=== PATIENT | female | born 1955 | race Caucasian/White ===

== ENCOUNTER 2018-08-23 08:59 | Inpatient (IN) | payer MEDICAID ==
[~2018-08-23] VITALS: Ht 167.6 cm; Wt 59.0 kg
[2018-08-23 09:05] VITALS: BP 155/50
--- NOTE | 2018-08-23 09:10 | NUR ---
63Y/F BIBA [facility] WITH C/O 8/10 RIGHT LEG PAIN/CELLULITIS X 1 MONTH. SWELLING/HOT TO TOUCH/REDENESS NOTED TO RIGHT KNEE TO RIGHT FOOT, + SWELLING, + DISCHARGE . SKIN TEAR NOTED TO RIGHT KNEE. PT STATES SHE CAME FROM A HOME SOMEWHERE ON [address]. [facility] STATES SHE WAS FOUND AT A [employer], HOMELESS OUT REACH GROUP CALL 911 FOR THE PT. HX--SZ,DM RX--METFORMIN 500MG, "INSULIN", DILANTIN
[2018-08-23] MEDS ORDERED: NACL 0.9% 1,500 ML IV SCH (09:27)
[2018-08-23] MEDS ORDERED: PIPERACILLIN/TAZOBACTAM 3.375 GM in DEXT 5% MINI-BAG PLUS 50 ML IV ONE (09:30)
--- NOTE | 2018-08-23 09:33 | NUR ---
Patient being evaluated by at bedside.
--- NOTE | 2018-08-23 09:40 | NUR ---
LAB AT BEDSIDE
--- NOTE | 2018-08-23 09:40 | NUR ---
X-RAY AT BEDSIDE
[2018-08-23] MEDS ORDERED: PIPERACILLIN/TAZOBACTAM 3.375 GM VIAL IV ONE (09:45)
[2018-08-23 10:09] LABS: BASOPHILS % (AUTO) 0.3 % (0.0-2.0); HEMATOCRIT 41.6 % (36-48); HEMOGLOBIN 13.6 g/dL (12.0-16.0); LYMPHOCYTES # (AUTO) 1.4 K/uL (2.5-16.5); MEAN CORPUSCULAR HEMOGLOBIN 29 pg (27-31); MEAN CORPUSCULAR HGB CONC 33 g/dL (33-37); MEAN CORPUSCULAR VOLUME 86.8 fL (80-94); MONOCYTES # (AUTO) 0.7 K/uL (0.8-1.0); MONOCYTES % (AUTO) 3.9 % (1.7-9.3); NEUTROPHILS # (AUTO) 14.8 K/uL (1.8-7.7); NEUTROPHILS % (AUTO) 87.8 % (42.2-75.2); PLATELET COUNT (AUTO) 354 K/uL (140-450); RED BLOOD CELL COUNT(AUTO) 4.79 MIL/uL (4.20-5.40); WHITE BLOOD COUNT (AUTO) 16.9 K/uL (4.8-10.8)
[2018-08-23 10:12] LABS: APPEARANCE,URINE CLEAR (CLEAR); BILIRUBIN,URINE NEGATIVE (NEGATIVE); BLOOD, URINE TRACE-L (NEGATIVE); COLOR,URINE YELLOW (YELLOW); LEUKOCYTE ESTERASE ,URINE NEGATIVE (NEGATIVE); NITRITE, URINE NEGATIVE (NEGATIVE); UGLUCOSE 3+ (NEGATIVE)
--- NOTE | 2018-08-23 10:19 | NUR ---
ULTRASOUND AT BEDSIDE
[2018-08-23 10:22] LABS: ALBUMIN 2.9 g/dL (3.4-5.0); ANION GAP 17.1 (8-16); CARBON DIOXIDE 25.7 mmol/L (21-32); CREATININE 0.8 mg/dL (0.6-1.3); POTASSIUM 3.8 mmol/L (3.5-5.1); TOTAL BILIRUBIN 0.7 mg/dL (0.0-1.0)
[2018-08-23 10:27] LABS: RBC,URINE 3-10 (FEW) /HPF (0-5); WBC,URINE 0-5 (RARE) /HPF (0-5); YEAST,URINE Few /HPF (None Seen)
[2018-08-23 10:28] LABS: PROTHROMBIN TIME 10.5 secs (10.8-13.4)
[2018-08-23] MEDS ORDERED: VANCOMYCIN 1,000 MG in DEXTROSE 5% 250 ML IV ONE (10:40)
[2018-08-23] MEDS ORDERED: VANCOMYCIN 1,000 MG VIAL ONE (11:06)
[2018-08-23] MEDS ORDERED: PHEN100C3 PO (12:11)
[2018-08-23] MEDS ORDERED: LANTUS SUBQ (12:11)
[2018-08-23] MEDS ORDERED: METF1000 PO (12:11)
--- NOTE | 2018-08-23 12:13 | NUR ---
Patient will be admitted to care of dr. royal. Admited to tele floor. Will go to room 108-a. Belongings list completed. Report to jamil forman.
[2018-08-23] MEDS ORDERED: VANCOMYCIN PER PHARMACY MC PRN (12:15)
[2018-08-23] MEDS ORDERED: DEXTROSE 50% 50 ML SYR IVP PRN (12:15)
[2018-08-23 12:20] VITALS: BP 122/56
--- NOTE | 2018-08-23 12:20 | NUR ---
RECEIVED BEDSIDE REPORT FROM ER NURSE. PT STABLE, AWAKE AND ALERT. NO SEIZURE ACTIVITY NOTED. RAILINGS PADDED. IV SITE WNL. NO SIGNS OF DISTRESS NOTED. CALL MUELLER WITHIN REACH. BED IN LOW POSITION. SAFETY MEASURES IN PLACE. PLAN OF CARE REVIEWED.
[2018-08-23] MEDS: PIPER/TAZO 3.375GM/D5W PREMIX 50 ML IV SCH ×2 (12:31→20:43)
[2018-08-23] MEDS: NACL 0.9% 1,000 ML IV SCH ×2 (12:32→19:47)
[2018-08-23] MEDS: PHENYTOIN 100 MG CAPER PO SCH ×2 (13:07→17:12)
[2018-08-23 13:08] LABS: BARBITURATE, URINE NEG. ng/ml (NEG <=200); BENZODIAZEPINE, URINE NEG. ng/mL (NEG <=200); CANNABINOID, URINE NEG. ng/mL (NEG <=50); COCAINE, URINE NEG. ng/mL (NEG <=300); OPIATE, URINE NEG. ng/mL (NEG <=2000); PHENCYCLIDINE SCREEN,URINE NEG. ng/mL (NEG <=25)
[2018-08-23] MEDS: NEOMYCIN/POLYMYXIN/BACITRACIN OIN 15 GM TUBE TP SCH (13:14)
--- NOTE | 2018-08-23 13:17 | NUR ---
ADMINISTERED SCHEDULED MEDICATIONS. PT TOLERATED WELL. NO OTHER NEEDS AT THIS TIME.
[2018-08-23 13:40] LABS: MAGNESIUM 1.2 mg/dL (1.8-2.4); PHOSPHORUS 3.7 mg/dL (2.5-4.9); THYROID STIMULATING HORMONE 0.75 uIU/mL (0.34-3.74)
--- NOTE | 2018-08-23 15:08 | NUR ---
PT ASSSITED TO BEDSIDE COMMODE, LARGE BM, ASSISTED WITH HYGENE, PT RETURNED TO BED
--- NOTE | 2018-08-23 16:08 | NUR ---
RIGHT KNEE WOUND AND RIGHT TOE WOUND CLEANED WITH NS, NEOSPORINE ONINTMENT APPLIED TO KNEE, DRESSING APPLIED TO BOTH WOUNDS
[2018-08-23] MEDS: INSULIN LISPRO SLIDING SCALE 100 UNITS/ML VIAL SUBQ PRN ×2 (17:05→21:16)
[2018-08-23] MEDS: BLOOD GLUCOSE MONITORING 1 DEV DEV FS SCH ×2 (17:12→20:47)
[2018-08-23] MEDS: metFORMIN 500 MG TAB PO SCH (17:12)
[2018-08-23 17:47] LABS: CHOL/HDL RATIO 3.5 (1-4.5)
--- NOTE | 2018-08-23 18:40 | NUR ---
UPHOLSTERY BUNDLER AT THE BEDSIDE. PT CONSENTED FOR SURGERY TOMORROW.
--- NOTE | 2018-08-23 19:20 | NUR ---
REPORT GIVEN TO NIGHT HSHIFT NURSE CELE, PT AWAKE ALERT, IN NAD.
[2018-08-23 20:00] VITALS: BP 110/47
[2018-08-23] MEDS: INSULIN LANTUS 100 UNITS/ML 10 ML VIAL SUBQ SCH ×2 (20:48→21:00)
--- NOTE | 2018-08-23 20:49 | NUR ---
TALKED TO DR. NAJERA REGARDING PT FOR SURGERY TOMORROW. HE SAID HOLD THE LANTUS FOR TONIGHT. Addendum: 08/23/18 at 2136 by Karen Coles RN DR. NAJERA SAID TO HOLD THE LANTUS .HAVE HER EAT THE SANDWICHIRST AND THEN RECHECKED THE BLOOD SUGAR AFTER EATING AND LET HIM KNOW.
--- NOTE | 2018-08-23 20:50 | NUR ---
DR. NAJERA SAID TO HOLD HEPARIN SUB Q TONIGHT FOR PT FOR SURGERY TOMORROW.
--- NOTE | 2018-08-23 22:44 | NUR ---
BLOOD SUGAR WAS RECHECKED AFTER EATING SANDWICH RESULT 207. DR. NAJERA RESIDENT MD SAID JUST GIVE 10 UNITS LANTUS FOR NOW AND RECHECK AGAIN BLOOD SUGAR AT NV.
[2018-08-23] MEDS ORDERED: INSULIN LANTUS 100 UNITS/ML 10 ML VIAL SUBQ ONE (22:50)
[2018-08-23] MEDS ORDERED: BENZONATATE 100 MG CAPLF PO PRN (23:45)
[2018-08-23 23:50] VITALS: BP 102/54
[2018-08-24] MEDS ORDERED: guaiFENesin DM 200/20 MG-10 ML 10 ML UDC PO PRN (00:05)
--- NOTE | 2018-08-24 00:20 | NUR ---
KEPT PT NPO AFTER MN FOR SURGERY LATER TODAY. PT IS AWARE.
--- NOTE | 2018-08-24 01:04 | NUR ---
BLOOD SUGAR WAS RECHECKED RESULT 225. DR. NAJERA RESIDENT MD MADE AWARE. NO NEW ORDER. WILL CONTINUE TO MONITOR.
--- NOTE | 2018-08-24 01:05 | NUR ---
MADE AWARE OF THE HEART RATE STILL ON THE 121 -122/MIN. HE SAID TO INCREASE THE MORPHINE DRIP TO 1OO MG /HR. Addendum: 08/24/18 at 0112 by Karen Coles RN CANCEL ABOVE NOTES. WRONG PT.
--- NOTE | 2018-08-24 02:30 | NUR ---
MADE ROUNDS. PT ASLEEP. NO S/S OF ANY DISCOMFORT NOTED. WILL CONTINUE TO MONITOR.
[2018-08-24 03:43] VITALS: BP 129/60
[2018-08-24] MEDS: PIPER/TAZO 3.375GM/D5W PREMIX 50 ML IV SCH ×3 (04:27→20:07)
[2018-08-24 05:42] LABS: BASOPHILS % (AUTO) 0.4 % (0.0-2.0); EOSINOPHILS # (AUTO) 0.1 K/uL (0-0.4); EOSINOPHILS % (AUTO) 0.8 % (0.0-4.0); HEMATOCRIT 33.9 % (36-48); HEMOGLOBIN 11.2 g/dL (12.0-16.0); LYMPHOCYTES # (AUTO) 3.3 K/uL (2.5-16.5); LYMPHOCYTES % (AUTO) 26.7 % (20.5-51.1); MEAN CORPUSCULAR HEMOGLOBIN 29 pg (27-31); MEAN CORPUSCULAR HGB CONC 33 g/dL (33-37); MEAN CORPUSCULAR VOLUME 86.3 fL (80-94); MONOCYTES # (AUTO) 1.2 K/uL (0.8-1.0); MONOCYTES % (AUTO) 9.8 % (1.7-9.3); NEUTROPHILS # (AUTO) 7.6 K/uL (1.8-7.7); NEUTROPHILS % (AUTO) 62.3 % (42.2-75.2); PLATELET COUNT (AUTO) 283 K/uL (140-450); RED BLOOD CELL COUNT(AUTO) 3.94 MIL/uL (4.20-5.40); RED CELL DISTRIBUTION WIDTH 12.7 % (11.6-13.7); WHITE BLOOD COUNT (AUTO) 12.2 K/uL (4.8-10.8)
[2018-08-24] MEDS: ONDANSETRON 4 MG/2 ML VIAL IM/IVP PRN (05:52)
[2018-08-24] MEDS: VANCOMYCIN 500 MG in NACL 0.9% 100 ML IV SCH ×2 (05:56→17:42)
[2018-08-24] MEDS: INSULIN LISPRO SLIDING SCALE 100 UNITS/ML VIAL SUBQ PRN ×3 (06:03→20:21)
[2018-08-24 06:07] LABS: ANION GAP 9.6 (8-16); CARBON DIOXIDE 28.7 mmol/L (21-32); CREATININE 0.6 mg/dL (0.6-1.3); POTASSIUM 3.3 mmol/L (3.5-5.1)
[2018-08-24 06:10] LABS: MAGNESIUM 1.4 mg/dL (1.8-2.4); PHOSPHORUS 2.6 mg/dL (2.5-4.9)
[2018-08-24] MEDS: BLOOD GLUCOSE MONITORING 1 DEV DEV FS SCH ×4 (06:35→20:12)
--- NOTE | 2018-08-24 06:37 | NUR ---
BLOOD SUGAR THIS AM 180. DR. NAJERA,RESIDENT MD MADE AWARE. HE SAID TO GIVE INSULIN COVERAGE HUMALOG 2 UNITS AND HE WILL CHANGE IVF TO D51/2NS.
[2018-08-24] MEDS ORDERED: DEXT 5% / NACL 0.45% 1,000 ML IV SCH (07:00)
--- NOTE | 2018-08-24 07:35 | NUR ---
ENDORSED PT IN STABLE CONDITION TO AM NURSE.
--- NOTE | 2018-08-24 07:36 | NUR ---
RECEIVED REPORT FROM THE CHIEF DIVERSITY OFFICER NURSE AT BEDSIDE FOR CONTINUITY OF CARE. PT IS AWAKE AND ORIENTED. INTRODUCED MYSELF AND UPDATED THE BOARD. REMINDED PT OF THE I&D SHE IS TO HAVE TODAY. PT IS AWARE. PT IS ON TELE, NOTED THE BEDSIDE COMMODE. PT HAS DRESSING ON R FOOT. DRY AND INTACT. IV ON L FA 22G, D5 1/2NS AT 80ML/HR. PT'S K AND MAG LOW TODAY. WILL NOTIFY MD FOR REPLACEMENT. V/S WITHIN NORMAL RANGE. WILL CONTINUE TO MONITOR PT.
--- NOTE | 2018-08-24 07:44 | NUR ---
PATIENT HAS BEEN SCREENED AND CATEGORIZED HIGH NUTRITION RISK. PATIENT WILL BE SEEN WITHIN 1-2 DAYS OF ADMISSION. 08/24/[address]
[2018-08-24 08:00] VITALS: BP 142/72
[2018-08-24 08:25] LABS: T4 (THYROXINE) 6.4 ug/dL (4.5-12.0)
[2018-08-24] MEDS: LISINOPRIL 5 MG TAB PO SCH (08:27)
[2018-08-24] MEDS: metFORMIN 500 MG TAB PO SCH ×2 (08:27→17:42)
[2018-08-24] MEDS: PHENYTOIN 100 MG CAPER PO SCH ×3 (08:27→17:42)
[2018-08-24] MEDS ORDERED: MAG SULF 2000 MG/WATER PREMIX 100 ML IV SCH (09:00)
[2018-08-24] MEDS ORDERED: COMMUNICATION ORDER MC ONE (10:55)
[2018-08-24] MEDS ORDERED: POTASSIUM CHLORIDE IV SCH (11:30)
[2018-08-24] MEDS ORDERED: MAGNESIUM SULFATE IV SCH (11:30)
[2018-08-24] MEDS ORDERED: LIDOCAINE IV SCH (11:30)
[2018-08-24] MEDS ORDERED: [UNRECOGNIZED DRUG - OTHER] IV SCH (11:30)
[2018-08-24 12:00] VITALS: BP 111/46
--- NOTE | 2018-08-24 12:05 | NUR ---
WOUND CARE EVALUATION. NOT DONE. PT TO OR.
[2018-08-24] MEDS ORDERED: KCL 20 MEQ/WATER INJ PREMIX 200 ML IV SCH (13:00)
--- NOTE | 2018-08-24 13:25 | NUR ---
08/24/18 RD INITIAL ASSESSMENT COMPLETED PLEASE REFER TO NUTRITION ASSESSMENT UNDER CARE ACTIVITY FOR ESTIMATED NUTRITIONAL NEEDS. 1. CONTINUE NPO DIET UNTIL MEDICALLY APPROPRIATE TO BEGIN NUTRITION 2. WHEN/IF PATIENT MEDICALLY STABLE TO BEGIN NUTRITION, RECOMMEND ADVANCE DIET TO 2 GM NA [address] TO FOLLOW UP ON ADEQUATE PO INTAKE AND VITAMINS AND MINERALS 4. RD PROVIDED DM AND HTN NUTRITION THERAPY EDUCATION 5. RD TO FOLLOW-UP 3-5 DAYS, MODERATE RISK JESSICA DEL CASTILLO RD
[2018-08-24] MEDS: BUPIVACAINE-MPF 0.5% 30 ML VIAL INJ ONE ×2 (13:28→14:24)
[2018-08-24] MEDS ORDERED: LIDOCAINE 1% 50 ML ONE (13:28)
[2018-08-24] MEDS ORDERED: PROPOFOL 200 MG/20 ML VIAL IV ONE (13:55)
[2018-08-24] MEDS ORDERED: SEVOFLURANE 250 ML BTL INH ONE (13:55)
--- NOTE | 2018-08-24 13:57 | NUR ---
LATE ENTRY. PT WENT TO OR FOR HER PROCEDURE. ALL 1300 MEDS WILL BE HELD UNTIL SHE RETURNS. WILL AWAIT HER RETURN.
[2018-08-24] MEDS ORDERED: MIDAZOLAM 2 MG/2 ML VIAL ONE (14:04)
[2018-08-24] MEDS ORDERED: fentaNYL 0.05 MG/ML VIAL ONE (14:05)
[2018-08-24] MEDS ORDERED: ONDANSETRON 4 MG/2 ML VIAL IVP PRN (14:30)
[2018-08-24] MEDS ORDERED: BLOOD GLUCOSE MONITORING 1 DEV DEV FS SCH (14:40)
--- NOTE | 2018-08-24 15:32 | NUR ---
PT RETURNED TO THE UNIT WITH 2 O/R NURSES. PT IS ALERT AND ORIENTED. V/S WITHIN NORMAL LIMITS. NS FLOWING AT THIS TIME.
--- NOTE | 2018-08-24 15:54 | NUR ---
CALLED PHARMACIST AND ASKED ABOUT GIVING DILANTIN AND ZOSYN 1300 DOSE. PER PHARMACIST OK TO GIVE. WILL GIVE INSTRUCTED.
[2018-08-24 16:00] VITALS: BP 140/55
[2018-08-24] MEDS: NACL 0.9% 1,000 ML IV SCH ×2 (16:01→23:17)
[2018-08-24] MEDS: NEOMYCIN/POLYMYXIN/BACITRACIN OIN 15 GM TUBE TP SCH (16:01)
--- NOTE | 2018-08-24 19:30 | NUR ---
REPORT RECEIVED FROM AM NURSE AT BEDSIDE. PT IN STABLE CONDITION. AAOX4. INTRODUCED SELF TO PT. BOARD UPDATED. NO COMPLAINTS OF PAIN. NO SOB. AFEBRILE. IV SITE L FA 22G RUNNING NS@120ML/HR PATENT AND INTACT. SKIN WARM, DRY, AND NOT INTACT DUE TO CELLULITIS OF THE R LEG. SZ PRECAUTIONS IN PLACE. BED LOCKED IN LOW POSITION. CALL MUELLER WITHIN REACH. SAFETY PRECAUTIONS IN PLACE.
[2018-08-24 20:00] VITALS: BP 125/46
--- NOTE | 2018-08-24 20:07 | NUR ---
ALFA HUNG AND RUNNING. HEPARIN GIVEN SUBQ. BS 192. 2 UNITS OF HUMALOG GIVEN. LANTUS 20 UNITS GIVEN SUBQ. PT TOLERATED WELL.
[2018-08-24] MEDS: INSULIN LANTUS 100 UNITS/ML 10 ML VIAL SUBQ SCH (20:22)
--- NOTE | 2018-08-24 22:10 | NUR ---
PT AWAKE AND WATCHING TV. NO S/S OF DISTRESS NOTED.
[2018-08-25] VITALS: BP 125/46
--- NOTE | 2018-08-25 00:30 | NUR ---
PT SLEEPING COMFORTABLY. NO S/S OF DISTRESS NOTED. WILL CONTINUE TO MONITOR.
[2018-08-25] MEDS: ONDANSETRON 4 MG/2 ML VIAL IM/IVP PRN ×2 (01:35→12:30)
--- NOTE | 2018-08-25 01:35 | NUR ---
ZOFRAN GIVEN FOR NAUSEA. PT TOLERATED WELL.
[2018-08-25] MEDS: KETOROLAC 30 MG/ML VIAL IVP PRN (01:42)
--- NOTE | 2018-08-25 01:42 | NUR ---
TORADOL GIVEN FOR 10/10 PAIN. PT TOLERATED WELL.
[2018-08-25] MEDS: PIPER/TAZO 3.375GM/D5W PREMIX 50 ML IV SCH ×3 (04:06→21:33)
--- NOTE | 2018-08-25 04:06 | NUR ---
ALFA HUNG AND RUNNING. PT TOLERATING WELL.
[2018-08-25] MEDS: VANCOMYCIN 500 MG in NACL 0.9% 100 ML IV SCH ×2 (05:09→18:59)
--- NOTE | 2018-08-25 05:09 | NUR ---
COSTA BRIGHT AND RUNNING. PT TOLERATING WELL.
[2018-08-25] MEDS: BLOOD GLUCOSE MONITORING 1 DEV DEV FS SCH ×4 (06:06→21:27)
--- NOTE | 2018-08-25 06:06 | NUR ---
BS 84. NO INSULIN COVERAGE NEEDED.
[2018-08-25] MEDS: NACL 0.9% 1,000 ML IV SCH ×3 (06:51→23:48)
--- NOTE | 2018-08-25 07:34 | NUR ---
REPORT GIVEN TO AM NURSE AT BEDSIDE. PT IN STABLE CONDITION.
--- NOTE | 2018-08-25 07:35 | NUR ---
RECEIVED PT AAOX4. NO SOB NOTED. NO C/O PAIN AT THIS TIME. IV TO LT FOREARM PATENT AND INTACT, CHEST CLEAR, ABDOMEN SOFT, BOWEL SOUNDS PRESENT. RT FOOT DRESSING DRY AND INTACT, RLE ELEVATED WITH PILLOW. INSTRUCTED PT TO CALL FOR ASSISTANCE, CALL LIGHT WITHIN REACH, PT VERBALIZED UNDERSTANDING.
[2018-08-25 08:00] VITALS: BP 133/64
[2018-08-25] MEDS: metFORMIN 500 MG TAB PO SCH ×2 (08:00→18:04)
[2018-08-25 08:33] LABS: BASOPHILS % (AUTO) 0.4 % (0.0-2.0); EOSINOPHILS # (AUTO) 0.1 K/uL (0-0.4); EOSINOPHILS % (AUTO) 0.9 % (0.0-4.0); HEMATOCRIT 34.4 % (36-48); HEMOGLOBIN 11.4 g/dL (12.0-16.0); LYMPHOCYTES # (AUTO) 4.7 K/uL (2.5-16.5); LYMPHOCYTES % (AUTO) 46.8 % (20.5-51.1); MEAN CORPUSCULAR HEMOGLOBIN 29 pg (27-31); MEAN CORPUSCULAR HGB CONC 33 g/dL (33-37); MEAN CORPUSCULAR VOLUME 87.5 fL (80-94); MONOCYTES # (AUTO) 0.8 K/uL (0.8-1.0); MONOCYTES % (AUTO) 7.7 % (1.7-9.3); NEUTROPHILS # (AUTO) 4.5 K/uL (1.8-7.7); NEUTROPHILS % (AUTO) 44.2 % (42.2-75.2); PLATELET COUNT (AUTO) 304 K/uL (140-450); RED BLOOD CELL COUNT(AUTO) 3.93 MIL/uL (4.20-5.40); RED CELL DISTRIBUTION WIDTH 12.8 % (11.6-13.7); WHITE BLOOD COUNT (AUTO) 10.1 K/uL (4.8-10.8)
[2018-08-25 08:54] LABS: ANION GAP 8.4 (8-16); CARBON DIOXIDE 29.2 mmol/L (21-32); CREATININE 0.6 mg/dL (0.6-1.3); POTASSIUM 3.6 mmol/L (3.5-5.1)
[2018-08-25 08:57] LABS: MAGNESIUM 1.9 mg/dL (1.8-2.4); PHOSPHORUS 3.1 mg/dL (2.5-4.9)
[2018-08-25] MEDS: PHENYTOIN 100 MG CAPER PO SCH ×3 (09:42→18:03)
[2018-08-25] MEDS: LISINOPRIL 5 MG TAB PO SCH (09:42)
[2018-08-25] MEDS: HYDROcodone/APAP 7.5/325 MG 1 TAB PO PRN ×2 (09:42→20:08)
--- NOTE | 2018-08-25 11:00 | NUR ---
WOUND DRESSING DONE BY DR. ULRICH (BUILDING PERFORMANCE SPECIALIST) AT THE BEDSIDE. PHOTOS TAKEN AND DOCUMENTED.
[2018-08-25] MEDS: INSULIN LISPRO SLIDING SCALE 100 UNITS/ML VIAL SUBQ PRN (12:24)
[2018-08-25] MEDS: NEOMYCIN/POLYMYXIN/BACITRACIN OIN 15 GM TUBE TP SCH (12:30)
[2018-08-25 17:00] VITALS: BP 123/54
--- NOTE | 2018-08-25 18:45 | NUR ---
PT'S IV LEAKING. RESTARTED A NEW LINE ON RT HAND WITH GAUGE 22.
--- NOTE | 2018-08-25 19:10 | NUR ---
PT AWAKE, WATCHING TV. NO SOB NOTED. NO COMPLAINTS MADE. WILL ENDORSE TO NEXT SHIFT NURSE FOR CONTINUITY OF CARE.
--- NOTE | 2018-08-25 19:20 | NUR ---
RECEIVED PT FROM AM SHIFT NURSE. AAOX4. NO SOB NOTED.COMPLAINED OF 7/10 ON R FOOT, WILL MEDICATE. IV TO L FOREARM PATENT AND INTACT. RT FOOT DRESSING DRY AND INTACT, RLE ELEVATED WITH PILLOW. PT PLACED IN LOW BED, CALL LIGHT WITHIN REACH, PT VERBALIZED UNDERSTANDING.
[2018-08-25] MEDS ORDERED: INFLUENZA VIRUS VACCINE QUAD 0.5 ML SYR IMVAC PRN (20:55)
--- NOTE | 2018-08-25 21:00 | NUR ---
MEDICATED, AND BLOOD SUGAR LEVEL TAKEN WITH NORMAL RESULT.
[2018-08-25] MEDS: INSULIN LANTUS 100 UNITS/ML 10 ML VIAL SUBQ SCH (21:31)
--- NOTE | 2018-08-25 22:00 | NUR ---
PT SLEEPY COMFORTABLE IN BED WILL CONTINUE TO MONITOR.
[2018-08-26] VITALS: BP 135/69
[2018-08-26] MEDS: KETOROLAC 30 MG/ML VIAL IVP PRN (04:54)
[2018-08-26] MEDS: PIPER/TAZO 3.375GM/D5W PREMIX 50 ML IV SCH ×2 (05:18→13:11)
--- NOTE | 2018-08-26 05:55 | NUR ---
PT C.O OF PAIN AGAIN 04/16 R FOOT,WILL MEDICATE.
[2018-08-26] MEDS: VANCOMYCIN 500 MG in NACL 0.9% 100 ML IV SCH (06:56)
[2018-08-26] MEDS: BLOOD GLUCOSE MONITORING 1 DEV DEV FS SCH ×3 (06:57→16:30)
--- NOTE | 2018-08-26 07:35 | NUR ---
ENDORSED TO AM SHIFT NURSE WITH STABLE VITAL SIGNS. TORADOL MEDS LAST GIVEN AT 0555 FOR PAIN ON R FOOT
[2018-08-26 07:36] LABS: BASOPHILS % (AUTO) 0.5 % (0.0-2.0); EOSINOPHILS # (AUTO) 0.1 K/uL (0-0.4); HEMATOCRIT 34.1 % (36-48); HEMOGLOBIN 11.4 g/dL (12.0-16.0); LYMPHOCYTES # (AUTO) 2.9 K/uL (2.5-16.5); LYMPHOCYTES % (AUTO) 37.4 % (20.5-51.1); MEAN CORPUSCULAR HEMOGLOBIN 29 pg (27-31); MEAN CORPUSCULAR HGB CONC 33 g/dL (33-37); MEAN CORPUSCULAR VOLUME 87.2 fL (80-94); MONOCYTES # (AUTO) 0.5 K/uL (0.8-1.0); MONOCYTES % (AUTO) 6.7 % (1.7-9.3); NEUTROPHILS # (AUTO) 4.3 K/uL (1.8-7.7); NEUTROPHILS % (AUTO) 54.4 % (42.2-75.2); PLATELET COUNT (AUTO) 302 K/uL (140-450); RED BLOOD CELL COUNT(AUTO) 3.91 MIL/uL (4.20-5.40); RED CELL DISTRIBUTION WIDTH 12.9 % (11.6-13.7); WHITE BLOOD COUNT (AUTO) 7.8 K/uL (4.8-10.8)
--- NOTE | 2018-08-26 07:36 | NUR ---
RECEIVED REPORT FROM ELECTION JUDGE NURSE. PATIENT SITTING IN BED COMFORTABLY. NO DISTRESS NOTED. DENIES ANY PAIN AT THIS TIME. RESPIRATIONS EVEN, UNLABORED, ON ROOM AIR. AAOX4, CALM, COOPERATIVE, SKIN COLOR APPROPRIATE TO ETHNICITY. 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 ABDOMEN SOFT, NON-DISTENDED. IV SITE INTACT, PATENT, AND INFUSING IVF PER MD ORDERS. REVIEWED PLAN OF CARE WITH PATIENT. PATIENT VERBALIZED UNDERSTANDING. SAFETY MEASURES IN PLACE, CALL LIGHT WITHIN REACH. WILL CONTINUE TO MONITOR.
[2018-08-26 07:52] LABS: ANION GAP 10.1 (8-16); CARBON DIOXIDE 27.6 mmol/L (21-32); CREATININE 0.5 mg/dL (0.6-1.3); POTASSIUM 3.7 mmol/L (3.5-5.1)
[2018-08-26 07:56] LABS: MAGNESIUM 1.4 mg/dL (1.8-2.4); PHOSPHORUS 3.3 mg/dL (2.5-4.9)
[2018-08-26 08:00] VITALS: BP 132/53
[2018-08-26] MEDS: NACL 0.9% 1,000 ML IV SCH ×2 (08:08→16:28)
[2018-08-26 08:29] LABS: PHENYTOIN (DILANTIN) 6.5 ug/ml (10.0-20.0)
[2018-08-26] MEDS: metFORMIN 500 MG TAB PO SCH ×2 (09:04→18:02)
[2018-08-26] MEDS: PHENYTOIN 100 MG CAPER PO SCH ×3 (09:05→18:02)
[2018-08-26] MEDS: LISINOPRIL 5 MG TAB PO SCH (09:05)
--- NOTE | 2018-08-26 09:11 | NUR ---
PATIENT SITTING IN BED WATCHING TV. NO DISTRESS NOTED. DENIES ANY PAIN. SCHEDULED MEDICATIONS DUE GIVEN. WILL CONTINUE TO MONITOR.
[2018-08-26] MEDS ORDERED: LISI-424 PO (10:28)
[2018-08-26] MEDS ORDERED: GLUC-805 FS (10:28)
[2018-08-26] MEDS ORDERED: LANTUS SUBQ (10:28)
[2018-08-26] MEDS ORDERED: HUMSLIDE SUBQ (10:28)
[2018-08-26] MEDS ORDERED: BACI1OIN TP (10:28)
[2018-08-26] MEDS ORDERED: ACET-9529 PO (10:28)
[2018-08-26] MEDS ORDERED: SULF-59 PO (10:30)
[2018-08-26] MEDS ORDERED: LACT-2 (10:32)
--- NOTE | 2018-08-26 11:30 | NUR ---
PATIENT LYING DOWN IN BED WATCHING TV. NO DISTRESS NOTED. DENIES ANY PAIN. WILL CONTINUE TO MONITOR.
[2018-08-26] MEDS ORDERED: LISI5TAB18 PO (11:42)
[2018-08-26] MEDS ORDERED: VANCOMYCIN 750 MG in NACL 0.9% 250 ML IV SCH (13:00)
[2018-08-26] MEDS: INSULIN LISPRO SLIDING SCALE 100 UNITS/ML VIAL SUBQ PRN (13:10)
[2018-08-26] MEDS: NEOMYCIN/POLYMYXIN/BACITRACIN OIN 15 GM TUBE TP SCH (13:11)
--- NOTE | 2018-08-26 13:11 | NUR ---
SCHEDULED MEDICATIONS DUE GIVEN. WILL CONTINUE TO MONITOR.
--- NOTE | 2018-08-26 13:26 | NUR ---
PATIENT SITTING IN BED. EDUCATED PATIENT ON HOW TO USE CRUTCHES PROPERLY WITH RETURN DEMONSTRATION PERFORMED BY PATIENT SUCCESSFULLY. WALKED DOWN THE HALLWAY A LITTLE BIT USING WALKER. PATIENT VERBALIZES COMFORTABLE WITH WALKER AT THIS TIME. SCHEDULED MEDICATIONS DUE GIVEN. WILL CONTINUE TO MONITOR.
--- NOTE | 2018-08-26 15:05 | NUR ---
PATIENT LYING DOWN IN BED WATCHING TV. NO DISTRESS NOTED. CONDITION UNCHANGED. SCHEDULED MEDICATIONS DUE GIVEN. WILL CONTINUE TO MONITOR.
[2018-08-26] MEDS: HYDROcodone/APAP 7.5/325 MG 1 TAB PO PRN (15:33)
--- NOTE | 2018-08-26 15:34 | NUR ---
FLU VACCINE GIVEN TO RIGHT DELTOID, PT KARISHMA WELL, NORCO GIVEN FOR C/O RIGHT FOOT PAIN 02/13, WILL REPORT TO PRIMARY NURSE.
[2018-08-26 16:00] VITALS: BP 147/64
[2018-08-26] MEDS ORDERED: MAGNESIUM OXIDE 400 MG TAB PO SCH (18:00)
[2018-08-26] MEDS ORDERED: MAGNESIUM OXIDE 400 MG TAB ONE (18:02)
--- NOTE | 2018-08-26 18:04 | NUR ---
PATIENT SITTING IN BED WATCHING TV. SCHEDULED MEDICATIONS DUE GIVEN. 800 MG MAG OXIDE GIVEN PER MD ORDERS. WILL CONTINUE TO MONITOR.
[2018-08-26] MEDS: ONDANSETRON 4 MG/2 ML VIAL IM/IVP PRN (19:16)
--- NOTE | 2018-08-26 19:21 | NUR ---
PATIENT'S FAMILY MEMBERS ARRIVED TO TAKE PATIENT HOME. DISCHARGE INSTRUCTIONS GIVEN TO PATIENT/DAUGHTER AT BEDSIDE IN PREFERRED LANGUAGE OF URDU. FOLLOW-UP INSTRUCTIONS PROVIDED TO PATIENT/FAMILY, WOUND CARE MANAGEMENT, NEW/CHANGED MEDICATION REGIMEN, FOLLOW-UP VISIT WITH PROP AND SCENERY MAKER AND PCP. ANSWERED ALL OF PATIENT/FAMILY'S QUESTIONS REGARDING DISCHARGE. PATIENT TO GET DRESSED AT THIS TIME. IV SITE REMOVED WITH MINIMAL BLOOD AND LUMEN COMPLETELY INTACT.
--- NOTE | 2018-08-26 19:22 | NUR ---
RECEIVED REPORT FROM DAY SHIFT NURSE AT PT BEDSIDE. PT IN STABLE CONDITION. PT DAUGHTER AT BEDSIDE. PT AWAITING TO BE DISCHARGED.
--- NOTE | 2018-08-26 19:22 | NUR ---
GAVE REPORT TO BUILD MASTER RN FOR CONTINUITY OF CARE AND TO FINISH DISCHARGE. PATIENT IN STABLE CONDITION.
--- NOTE | 2018-08-26 19:59 | NUR ---
PT DISCHARGED AT THIS TIME. IV AND ID BAND REMOVED. ALL PT TEACHING REGARDING BS MONITORING AND WOUND CARE GIVEN, ACKNOWLEDGED AND PT AND DAUGHTER VERBALIZED UNDERSTANDING. ALL PAPERWORK, WOUND CARE SUPPLIES, CRUTCHES AND PERSONAL BELONGINGS WITH PT. PT TAKEN TO CAR VIA WHEELCHAIR AND LEFT WITH DAUGHTER. PT IN STABLE CONDITION. NO SIGNS OR SYMPTOMS OF DISTRESS.
--- NOTE | 2018-08-27 15:05 | NUR ---
I WAS REQUESTED BY CM DIRECTOR MARCELO TO MAKE AN OUTPATIENT FOLLOW UP. ATTEMPTED TO CALL PATIENT TO MAKE AN OUTPATIENT APPOINTMENT BUT PATIENT HAS NO PHONE NUMBER LISTED AND NO HOME ADDRESS LISTED. CM DIRECTOR MARCELO AWARE.
== END 2018-08-26 19:59 | disposition home or self-care (01) | DRG 710 ==
LOC: MED 08:59 → MTU 11:23
PROVIDERS: ADMIT General Practice; ATTEND General Practice
PROC: 3E0234Z Introduction of Serum, Toxoid and Vaccine into Muscle, Percutaneous Approach (ICD-10-PCS; 2018-08-23)
PROC: 0Y6M0ZC Detachment at Right Foot, Partial 3rd Ray, Open Approach (ICD-10-PCS; principal; 2018-08-24 14:00)
PROC: 3E02340 Introduction of Influenza Vaccine into Muscle, Percutaneous Approach (ICD-10-PCS; 2018-08-25)
DX: A41.9 Sepsis, unspecified organism (principal); M72.6 Necrotizing fasciitis; I50.43 Acute on chronic combined systolic (congestive) and diastolic (congestive) heart failure; J18.9 Pneumonia, unspecified organism; I96 Gangrene, not elsewhere classified; E44.0 Moderate protein-calorie malnutrition; L03.115 Cellulitis of right lower limb; E83.42 Hypomagnesemia; E87.0 Hyperosmolality and hypernatremia; N39.0 Urinary tract infection, site not specified; E11.65 Type 2 diabetes mellitus with hyperglycemia; F17.210 Nicotine dependence, cigarettes, uncomplicated; B35.1 Tinea unguium; B96.20 Unspecified Escherichia coli [E. coli] as the cause of diseases classified elsewhere; G40.909 Epilepsy, unspecified, not intractable, without status epilepticus; I11.0 Hypertensive heart disease with heart failure; L02.611 Cutaneous abscess of right foot; E87.6 Hypokalemia; E11.52 Type 2 diabetes mellitus with diabetic peripheral angiopathy with gangrene; Z16.12 Extended spectrum beta lactamase (ESBL) resistance; Z59.0 Homelessness; Z86.61 Personal history of infections of the central nervous system; Z86.73 Personal history of transient ischemic attack (TIA), and cerebral infarction without residual deficits; Z89.429 Acquired absence of other toe(s), unspecified side; Z23 Encounter for immunization; Z88.8 Allergy status to other drugs, medicaments and biological substances; Z79.4 Long term (current) use of insulin; Z79.899 Other long term (current) drug therapy; Z68.21 Body mass index [BMI] 21.0-21.9, adult; Z91.14 Patient's other noncompliance with medication regimen; Z90.49 Acquired absence of other specified parts of digestive tract
CPT/HCPCS: 36415; 36600; 71045; 73630; 76881; 80048; 80053; 80185; 80202; 80305; 81001; 82803; 82948; 83036; 83605; 83690; 83735; 83880; 84100; 84436; 84443; 84479; 84484; 85025; 85610; 85730; 87040; 87070; 87081; 87086; 88305; 88311; 90471; 90658; 90715; 93005; 93926; 93971; 96365; 96367; 99285; J1644; J1815; J1885; J2001; J2250; J2405; J2543; J2704; J3010; J3370; J3475; J3480; J3490; J7030; Q0092

== ENCOUNTER 2018-08-29 18:28 | Emergency (ER) | payer MEDICAID ==
[~2018-08-29] VITALS: Ht 157.5 cm; Wt 59.0 kg
[~2018-08-29 18:28] MED LIST: ACET-9529 PO; BACI1OIN TP; GLUC-805 FS; HUMSLIDE SUBQ; LACT-2; LANTUS SUBQ; LISI5TAB18 PO; METF1000 PO; PHEN100C3 PO; SULF-59 PO
[2018-08-29 18:35] VITALS: BP 133/89
--- NOTE | 2018-08-29 19:47 | NUR ---
PT MOVED TO BED 11
--- NOTE | 2018-08-29 20:00 | NUR ---
BIB [facility] WITH C/O RT TOE PAIN RADIATING JUST ABOVE HER RT ANKLE S/P RT TOE 3RD DIGIT AMPUTATION TON 08/23/18 D/T INFECTION. SAFETY PRECAUTIONS IN PLACE. ER MD MADE AWARE OF PT STATUS. HX; HTN, DM, SEIZURE RX; METOFORMIN, INSULIN, DILANTIN, LISINOPRIL, "ANTIBIOTICS"
[2018-08-29] MEDS ORDERED: KETOROLAC 30 MG/ML VIAL IM ONE (20:10)
[2018-08-29] MEDS ORDERED: HYDROcodone/APAP 5/325 MG 1 TAB TAB PO ONE (20:10)
[2018-08-29 20:58] VITALS: BP 149/55
== END 2018-08-29 20:58 | disposition home or self-care (01) ==
LOC: MED 18:28
DX: G89.18 Other acute postprocedural pain (principal); M79.671 Pain in right foot; E11.9 Type 2 diabetes mellitus without complications; Z89.421 Acquired absence of other right toe(s); Z79.4 Long term (current) use of insulin; Z79.899 Other long term (current) drug therapy; Z79.891 Long term (current) use of opiate analgesic; Z79.2 Long term (current) use of antibiotics; Z88.8 Allergy status to other drugs, medicaments and biological substances
CPT/HCPCS: 73630; 96372; 99283; J1885

== ENCOUNTER 2018-09-09 14:45 | Inpatient (IN) | payer MEDICAID ==
[~2018-09-09] VITALS: Ht 160 cm; Wt 59.0 kg
[2018-09-09 15:05] VITALS: BP 179/83
--- NOTE | 2018-09-09 15:10 | NUR ---
63Y/F BIB SELF C/O FOOT PAIN, PT HAD R 3RD TOE REMOVAL X6 DAYS AGO, C/O PAIN. NOTED FOUL ODOR AND DISCOLORATION, NO DISCHARGE AT THIS TIME, < 3 CAP REFILL, SWELLING AND REDNESS NOTED. PT AAOX4, VSS AT THIS TIME, BED DOWN, LOW, LOCKED, BEDRAIL UP X 1, ER MD AWARE AND NOTIFIED OF PT STATUS. PMH; DM, HTN, SZ ALLERGIES; BENADRYL
--- NOTE | 2018-09-09 16:00 | NUR ---
PT NOT ABLE TO GIVE URINE
--- NOTE | 2018-09-09 16:30 | NUR ---
Patient being evaluated by physician at bedside.
[2018-09-09] MEDS ORDERED: CLINDAMYCIN 900 MG in DEXTROSE 5% 100 ML IV ONE (17:05)
[2018-09-09] MEDS ORDERED: NACL 0.9% 1,000 ML IV SCH (17:05)
--- NOTE | 2018-09-09 17:26 | NUR ---
RADIOLOGY AT BEDSIDE
--- NOTE | 2018-09-09 17:28 | NUR ---
EKG BEING DONE ON PT
[2018-09-09] MEDS ORDERED: CLINDAMYCIN 900 MG/6 ML VIAL IV ONE (17:32)
[2018-09-09] MEDS ORDERED: ZOLPIDEM 5 MG TAB PO PRN (17:40)
[2018-09-09] MEDS ORDERED: ACETAMINOPHEN 325 MG TAB PO PRN (17:40)
[2018-09-09] MEDS ORDERED: DOCUSATE SODIUM 100 MG GELCAP PO PRN (17:40)
[2018-09-09] MEDS ORDERED: HYDROcodone/APAP 5/325 MG 1 TAB TAB PO PRN (17:40)
[2018-09-09 17:46] LABS: BASOPHILS # (AUTO) 0.1 K/uL (0.00-0.22); BASOPHILS % (AUTO) 0.7 % (0.0-2.0); EOSINOPHILS % (AUTO) 0.5 % (0.0-4.0); HEMATOCRIT 40.3 % (36-48); HEMOGLOBIN 13.4 g/dL (12.0-16.0); LYMPHOCYTES # (AUTO) 4.3 K/uL (2.5-16.5); LYMPHOCYTES % (AUTO) 45.5 % (20.5-51.1); MEAN CORPUSCULAR HEMOGLOBIN 29 pg (27-31); MEAN CORPUSCULAR HGB CONC 33 g/dL (33-37); MEAN CORPUSCULAR VOLUME 86.6 fL (80-94); MONOCYTES # (AUTO) 0.5 K/uL (0.8-1.0); MONOCYTES % (AUTO) 5.2 % (1.7-9.3); NEUTROPHILS # (AUTO) 4.5 K/uL (1.8-7.7); NEUTROPHILS % (AUTO) 48.1 % (42.2-75.2); PLATELET COUNT (AUTO) 375 K/uL (140-450); RED BLOOD CELL COUNT(AUTO) 4.66 MIL/uL (4.20-5.40); WHITE BLOOD COUNT (AUTO) 9.3 K/uL (4.8-10.8)
[2018-09-09 17:55] LABS: ANION GAP 10.5 (8-16); CARBON DIOXIDE 30.1 mmol/L (21-32); CREATININE 0.8 mg/dL (0.6-1.3); POTASSIUM 4.6 mmol/L (3.5-5.1)
[2018-09-09 18:02] LABS: ALBUMIN 3.1 g/dL (3.4-5.0); TOTAL BILIRUBIN 0.3 mg/dL (0.0-1.0)
[2018-09-09 18:05] LABS: PROTHROMBIN TIME 9.6 secs (10.8-13.4)
[2018-09-09 18:12] LABS: CHOL/HDL RATIO 3.6 (1-4.5); FREE T4 (FREE THYROXINE) 1.02 ng/dL (0.76-1.46); MAGNESIUM 1.5 mg/dL (1.8-2.4); PHOSPHORUS 2.6 mg/dL (2.5-4.9)
--- NOTE | 2018-09-09 18:20 | NUR ---
Patient will be admitted to care of DR. SAGASTUME. Admited to MED SURG FLOOR. Will go to room 106-A. Belongings list completed. Report to EHSAN KIMBALL.
[2018-09-09] MEDS ORDERED: DEXTROSE 50% 50 ML SYR IVP PRN (18:25)
[2018-09-09] MEDS ORDERED: PHENYTOIN 100 MG CAPER PO SCH (18:30)
--- NOTE | 2018-09-09 18:45 | NUR ---
PATIENT ADMITTED TO THE UNIT FROM ER. PATIENT AWAKE, ALERT AND ORIENTED. NO S/S OF DISTRESS NOTED. OPEN WOUND NOTED ON THE RIGHT FOOT. WOUND CULTURE COLLECTED, WOUND PHOTO TAKEN. FALL PRECAUTIONS IN PLACE. CALL LIGHT WITHIN REACH
[2018-09-09 18:55] VITALS: BP 167/71
--- NOTE | 2018-09-09 19:10 | NUR ---
PATIENT REPORT GIVEN AT BEDSIDE. PATIENT ENDORSED IN STABLE CONDITION
--- NOTE | 2018-09-09 19:11 | NUR ---
RECEIVED REPORT FROM DAYSHIFT NURSE AT BEDSIDE FOR CONTINUITY OF CARE. PT AAOX4. PT IV NOTED RAC 20G NS 60. NO SOB NO S/S OF DISTRESS ON RA. SEIZURE PRECAUTION. BED LOWERED CALL LIGHT WITHIN REACH. FALL PRECAUTIONS.
[2018-09-09] MEDS ORDERED: LISINOPRIL 5 MG TAB PO SCH (19:30)
[2018-09-09] MEDS ORDERED: MAG SULF 2000 MG/WATER PREMIX 50 ML IV SCH (20:00)
[2018-09-09] MEDS ORDERED: ASPIRIN 81 MG TAB.CHEW PO SCH (20:00)
--- NOTE | 2018-09-09 20:00 | NUR ---
FOUL ODOR FROM TOE. WILL CONTINUE TO MONITOR. WOUND ASSESSMENT ADDED. PT HAS BEDSIDE COMMODE, BED ALARM ON, AND URINE SAMPLE SENT TO LAB.
[2018-09-09] MEDS: NACL 0.9% 1,000 ML IV SCH (20:07)
[2018-09-09] MEDS: INSULIN LISPRO SLIDING SCALE 100 UNITS/ML VIAL SUBQ PRN (20:32)
[2018-09-09] MEDS: INSULIN LANTUS 100 UNITS/ML 10 ML VIAL SUBQ SCH (20:34)
[2018-09-09] MEDS: BLOOD GLUCOSE MONITORING 1 DEV DEV FS SCH (21:49)
--- NOTE | 2018-09-09 23:00 | NUR ---
ADMIN ABX. PT SLEEPING NO SOB NO S/S OF DISTRESS ON RA. WILL CONTINUE TO MONITOR.
[2018-09-09 23:01] LABS: BARBITURATE, URINE NEG. ng/ml (NEG <=200); BENZODIAZEPINE, URINE NEG. ng/mL (NEG <=200); CANNABINOID, URINE NEG. ng/mL (NEG <=50); COCAINE, URINE NEG. ng/mL (NEG <=300); OPIATE, URINE NEG. ng/mL (NEG <=2000); PHENCYCLIDINE SCREEN,URINE NEG. ng/mL (NEG <=25)
[2018-09-09 23:20] LABS: APPEARANCE,URINE CLEAR (CLEAR); BILIRUBIN,URINE NEGATIVE (NEGATIVE); BLOOD, URINE NEGATIVE (NEGATIVE); COLOR,URINE YELLOW (YELLOW); LEUKOCYTE ESTERASE ,URINE NEGATIVE (NEGATIVE); NITRITE, URINE NEGATIVE (NEGATIVE); UGLUCOSE 3+ (NEGATIVE)
[2018-09-09 23:22] LABS: RBC,URINE 0-5 (RARE) /HPF (0-5); WBC,URINE 0-5 (RARE) /HPF (0-5)
[2018-09-09] MEDS ORDERED: CLINDAMYCIN 600 MG/4 ML VIAL ONE (23:28)
[2018-09-09] MEDS: CLINDAMYCIN 600 MG in DEXTROSE 5% 50 ML IV SCH (23:29)
[2018-09-10] VITALS: BP 148/75
--- NOTE | 2018-09-10 00:20 | NUR ---
PT SLEEPING NO SOB NO S/S OF DISTRESS ON RA. WILL CONTINUE TO MONITOR.
--- NOTE | 2018-09-10 04:00 | NUR ---
PT SLEEPING NO SOB NO S/S OF DISTRESS ON RA.
[2018-09-10 06:27] LABS: BASOPHILS % (AUTO) 0.5 % (0.0-2.0); EOSINOPHILS # (AUTO) 0.1 K/uL (0-0.4); EOSINOPHILS % (AUTO) 0.9 % (0.0-4.0); HEMATOCRIT 37.6 % (36-48); HEMOGLOBIN 12.4 g/dL (12.0-16.0); LYMPHOCYTES # (AUTO) 4.7 K/uL (2.5-16.5); LYMPHOCYTES % (AUTO) 55.1 % (20.5-51.1); MEAN CORPUSCULAR HEMOGLOBIN 29 pg (27-31); MEAN CORPUSCULAR HGB CONC 33 g/dL (33-37); MEAN CORPUSCULAR VOLUME 87.1 fL (80-94); MONOCYTES # (AUTO) 0.6 K/uL (0.8-1.0); MONOCYTES % (AUTO) 6.9 % (1.7-9.3); NEUTROPHILS # (AUTO) 3.1 K/uL (1.8-7.7); NEUTROPHILS % (AUTO) 36.6 % (42.2-75.2); PLATELET COUNT (AUTO) 317 K/uL (140-450); RED BLOOD CELL COUNT(AUTO) 4.32 MIL/uL (4.20-5.40); RED CELL DISTRIBUTION WIDTH 13.7 % (11.6-13.7); WHITE BLOOD COUNT (AUTO) 8.5 K/uL (4.8-10.8)
[2018-09-10] MEDS: CLINDAMYCIN 600 MG in DEXTROSE 5% 50 ML IV SCH (06:30)
[2018-09-10] MEDS ORDERED: CLINDAMYCIN 600 MG/4 ML VIAL ONE (06:32)
[2018-09-10] MEDS: BLOOD GLUCOSE MONITORING 1 DEV DEV FS SCH ×3 (06:36→21:00)
[2018-09-10 06:53] LABS: ANION GAP 9.3 (8-16); CARBON DIOXIDE 25.9 mmol/L (21-32); CREATININE 0.6 mg/dL (0.6-1.3); POTASSIUM 4.2 mmol/L (3.5-5.1)
--- NOTE | 2018-09-10 07:20 | NUR ---
ENDORSED REPORT TO DAYSHIFT NURSE AT BEDSIDE FOR CONTINUITY OF CARE.
--- NOTE | 2018-09-10 07:21 | NUR ---
RECEIVED BEDSIDE REPORT FROM DEVELOPMENT PLANNER NURSE. PATIENT AAOX4. PATIENT ON ROOM AIR, NO DISTRESS NOTED. SKIN INTACT EXCEPT FOR R FOOT CELLULITIS. PATIENT FALL RISK WITH BEDSIDE COMMODE. FALL RISK PROTOCOL IN PLACE. IV ON RAC 20 G INFUSING NS AT 60. IV CLEAN DRY AND INTACT. PATIENT ON MED SURGE AND STANDARD ISOLATION. BED IN LOW POSITION, CALL LIGHT WITHIN REACH. WILL CONTINUE TO MONITOR.
[2018-09-10 08:00] VITALS: BP 147/61
--- NOTE | 2018-09-10 08:06 | NUR ---
PATIENT HAS BEEN SCREENED AND CATEGORIZED MODERATE NUTRITION RISK. PATIENT WILL BE SEEN WITHIN 3-5 DAYS OF ADMISSION. 09/12/18JESSICA DEL CASTILLO RD
[2018-09-10] MEDS: metFORMIN 500 MG TAB PO SCH ×2 (08:17→17:00)
[2018-09-10] MEDS: LISINOPRIL 5 MG TAB PO SCH (08:17)
[2018-09-10] MEDS: ASPIRIN 81 MG TAB.CHEW PO SCH (08:17)
[2018-09-10] MEDS: PHENYTOIN 100 MG CAPER PO SCH ×3 (08:18→17:00)
[2018-09-10] MEDS ORDERED: VANCOMYCIN PER PHARMACY MC PRN (08:20)
[2018-09-10] MEDS ORDERED: LISINOPRIL 5 MG TAB PO SCH (09:00)
[2018-09-10] MEDS: VANCOMYCIN 750 MG in DEXTROSE 5% 250 ML IV SCH ×2 (11:08→23:21)
[2018-09-10] MEDS: ONDANSETRON 4 MG/2 ML VIAL IM/IVP PRN (11:08)
[2018-09-10] MEDS: NACL 0.9% 1,000 ML IV SCH ×2 (11:10→23:41)
[2018-09-10] MEDS ORDERED: CLINDAMYCIN PHOS 600MG/D5W PM 50 ML IV SCH (13:00)
[2018-09-10] MEDS: INSULIN LISPRO SLIDING SCALE 100 UNITS/ML VIAL SUBQ PRN (13:22)
--- NOTE | 2018-09-10 19:50 | NUR ---
RECEIVED BEDSIDE REPORT FROM SUPERVISOR FUR DRESSING NURSE. PATIENT AAOX4. PATIENT ON ROOM AIR, NO DISTRESS NOTED. SKIN INTACT EXCEPT FOR R FOOT CELLULITIS. PATIENT FALL RISK WITH BEDSIDE COMMODE. FALL RISK PROTOCOL IN PLACE. IV ON RAC 20 G INFUSING NS AT 60. IV CLEAN DRY AND INTACT. PATIENT ON MED SURGE AND STANDARD ISOLATION. BED IN LOW POSITION, CALL LIGHT WITHIN REACH. WILL CONTINUE TO MONITOR.
[2018-09-10 20:00] VITALS: BP 114/53
[2018-09-10] MEDS: INSULIN LANTUS 100 UNITS/ML 10 ML VIAL SUBQ SCH (21:00)
--- NOTE | 2018-09-10 23:30 | NUR ---
REINSERTED IV ON LEFT ARM, PATENT, FLUSHED, NO S/SX OF PAIN, REDNESS, SWELLING, INFECTION NOTED. WILL CONTINUE TO MONITOR.
--- NOTE | 2018-09-11 01:45 | NUR ---
FREQUENT CHECKS MADE. PATIENT ASLEEP. WILL CONTINUE TO MONITOR.
[2018-09-11 04:00] VITALS: BP 110/58
--- NOTE | 2018-09-11 04:00 | NUR ---
PATIENT ASLEEP, EYES CLOSED, VISIBLE CHEST RISE AND FALL NOTED.
[2018-09-11 06:04] LABS: BASOPHILS % (AUTO) 0.6 % (0.0-2.0); EOSINOPHILS # (AUTO) 0.1 K/uL (0-0.4); EOSINOPHILS % (AUTO) 1.9 % (0.0-4.0); HEMATOCRIT 38.1 % (36-48); HEMOGLOBIN 12.7 g/dL (12.0-16.0); LYMPHOCYTES # (AUTO) 4.6 K/uL (2.5-16.5); LYMPHOCYTES % (AUTO) 61.3 % (20.5-51.1); MEAN CORPUSCULAR HEMOGLOBIN 29 pg (27-31); MEAN CORPUSCULAR HGB CONC 33 g/dL (33-37); MEAN CORPUSCULAR VOLUME 86.9 fL (80-94); MONOCYTES # (AUTO) 0.6 K/uL (0.8-1.0); MONOCYTES % (AUTO) 7.4 % (1.7-9.3); NEUTROPHILS # (AUTO) 2.2 K/uL (1.8-7.7); NEUTROPHILS % (AUTO) 28.8 % (42.2-75.2); PLATELET COUNT (AUTO) 302 K/uL (140-450); RED BLOOD CELL COUNT(AUTO) 4.38 MIL/uL (4.20-5.40); RED CELL DISTRIBUTION WIDTH 13.7 % (11.6-13.7); WHITE BLOOD COUNT (AUTO) 7.6 K/uL (4.8-10.8)
[2018-09-11 06:35] LABS: CREATININE 0.6 mg/dL (0.6-1.3)
[2018-09-11] MEDS: INSULIN LISPRO SLIDING SCALE 100 UNITS/ML VIAL SUBQ PRN (06:42)
[2018-09-11 06:45] LABS: ANION GAP 7.7 (8-16); CARBON DIOXIDE 26.4 mmol/L (21-32); POTASSIUM 4.1 mmol/L (3.5-5.1)
[2018-09-11] MEDS: BLOOD GLUCOSE MONITORING 1 DEV DEV FS SCH (06:46)
[2018-09-11 06:55] LABS: MAGNESIUM 1.3 mg/dL (1.8-2.4); PHOSPHORUS 3.5 mg/dL (2.5-4.9)
--- NOTE | 2018-09-11 07:20 | NUR ---
ENDORSED PATIENT TO AM EHSAN WOLFE. PATIENT IN STABLE CONDITION.
--- NOTE | 2018-09-11 07:21 | NUR ---
GOT REPORT FROM TEMPLATE CUTTER NURSE. PATIENT AAOX4. PATIENT ON ROOM AIR, NO DISTRESS NOTED. R FOOT WOUND DRESSING CLEAN DRY AND INTACT. PATIENT UNABLE TO AMBULATE. PATIENT ON MED SURGE AND STANDARD PRECAUTIONS. IV ON R FA INFUSING NS AT 60. IV CLEAN DRY AND INTACT. FALL RISK PROTOCOL IN PLACE. SEIZURE PRECAUTIONS IN PLACE. BED IN LOW POSITION, CALL LIGHT WITHIN REACH WILL CONTINUE TO MONITOR.
[2018-09-11 08:00] VITALS: BP 140/59
[2018-09-11] MEDS: ASPIRIN 81 MG TAB.CHEW PO SCH (08:34)
[2018-09-11] MEDS: metFORMIN 500 MG TAB PO SCH (08:35)
[2018-09-11] MEDS: LISINOPRIL 5 MG TAB PO SCH (08:39)
[2018-09-11] MEDS: PHENYTOIN 100 MG CAPER PO SCH (08:40)
--- NOTE | 2018-09-11 08:51 | NUR ---
ADMINISTERED SCHEDULED MEDS TO PATIENT. PATIENT TOLERATED WELL. WILL CONTINUE TO MONITOR.
[2018-09-11] MEDS ORDERED: LACTOBACILLUS RHAMNOSUS GG 1 EACH CAP PO SCH (09:00)
[2018-09-11] MEDS: ONDANSETRON 4 MG/2 ML VIAL IM/IVP PRN (09:01)
--- NOTE | 2018-09-11 09:50 | NUR ---
PHONG AT BEDSIDE. PATIENT STATED SHE WANTS TO SIGN AMA PAPERS. I ASKED PATIENT FOR THE REASON SHE STATED BECAUSE SOMETHING CAME UP. NOTIFIED DR. HERNDON. PATIENT SIGNED AMA PAPERS AND VERBALIZED UNDERSTANDING. Addendum: 09/11/18 at 1114 by Luzma Wall RN CHARGE NURSE MADE AWARE
--- NOTE | 2018-09-11 09:55 | NUR ---
REMOVED IV FROM PATIENT. TIP INTACT. REMOVED WRIST BAND.
[2018-09-11] MEDS ORDERED: VANCOMYCIN 750 MG in DEXTROSE 5% 250 ML IV SCH (11:00)
== END 2018-09-11 10:00 | disposition left against medical advice (07) | DRG 349 ==
LOC: MED 14:45 → MTU 17:32
PROVIDERS: ADMIT General Practice; ATTEND General Practice
PROC: 0JBQ0ZZ Excision of Right Foot Subcutaneous Tissue and Fascia, Open Approach (ICD-10-PCS; principal; 2018-09-10)
DX: T87.43 Infection of amputation stump, right lower extremity (principal); E11.40 Type 2 diabetes mellitus with diabetic neuropathy, unspecified; E44.0 Moderate protein-calorie malnutrition; T81.30XA Disruption of wound, unspecified, initial encounter; L03.115 Cellulitis of right lower limb; E11.65 Type 2 diabetes mellitus with hyperglycemia; E83.42 Hypomagnesemia; I10 Essential (primary) hypertension; Y83.8 Other surgical procedures as the cause of abnormal reaction of the patient, or of later complication, without mention of misadventure at the time of the procedure; L84 Corns and callosities; B35.1 Tinea unguium; E87.1 Hypo-osmolality and hyponatremia; Z53.21 Procedure and treatment not carried out due to patient leaving prior to being seen by health care provider; G40.909 Epilepsy, unspecified, not intractable, without status epilepticus; Z68.23 Body mass index [BMI] 23.0-23.9, adult; Z88.8 Allergy status to other drugs, medicaments and biological substances; Z79.84 Long term (current) use of oral hypoglycemic drugs; Z79.899 Other long term (current) drug therapy; Z79.4 Long term (current) use of insulin; Z59.0 Homelessness; Z91.14 Patient's other noncompliance with medication regimen; Z89.431 Acquired absence of right foot; Y92.89 Other specified places as the place of occurrence of the external cause
CPT/HCPCS: 36415; 71045; 73630; 80048; 80053; 80305; 81001; 82550; 82553; 82948; 83036; 83605; 83690; 83735; 83874; 83880; 84100; 84439; 84443; 84484; 85025; 85610; 85730; 87040; 87070; 87075; 87081; 87086; 87186; 87205; 93005; 96365; 99285; J1644; J1815; J2405; J3370; J3475; J3490; J7030; J7060; Q0092